=== PATIENT | female | born 1965 | race Two or more races ===

== ENCOUNTER 2022-01-14 15:29 | Emergency (ER) | payer MEDICAID ==
[~2022-01-14] VITALS: Ht 152.4 cm; Wt 49.9 kg
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
--- NOTE | 2022-01-14 15:35 | NUR ---
IV CANNULA G18 INSERTED ON RIGHT AC. BLOOD DRAWN AND SENT TO LAB. PATIENT IS COMPLAINING OF DIZZINESS AND PAIN AT THE OCCIPITAL AREA OF HEAD. +N/V. DR ESPOSITO MADE AWARE.
[2022-01-14] MEDS ORDERED: ONDANSETRON HCL/PF 4 MG/2 ML VIAL ONE (16:02)
--- NOTE | 2022-01-14 16:02 | NUR ---
WHEELED PATIENT TO RAD DEPT FOR CT SCAN.
[2022-01-14] MEDS: ONDANSETRON HCL/PF 4 MG/2 ML VIAL IVP ONE (16:12)
--- NOTE | 2022-01-14 16:13 | NUR ---
SPOKE TO DAUGHTER LOU ABOUT PATIENT. HER NUMBER . SHE WILL BE THE PATIENT RANCH HAND SUPERVISOR.
[2022-01-14] MEDS ORDERED: ACETAMINOPHEN ES 500 MG TABLET ONE (16:36)
[2022-01-14] MEDS: ACETAMINOPHEN ES 500 MG TABLET PO ONE (16:38)
[2022-01-14] MEDS ORDERED: TRAM-351 PO (18:52)
--- NOTE | 2022-01-14 19:30 | NUR ---
PATIENT FOR DISCHARGE. CALLED DAUGHTER LOU AND EXPLAINED THE DISCHARGE INSTRUCTION. HAD AN ROUTE SALES DELIVERY DRIVER WITH ME TO EXPLAIN THE DISCHARGE INSTRUCTION TO PATIENT AND HER SISTER CONCHITA. IV CANNULA REMOVED.
[2022-01-14 19:39] VITALS: BP 149/91
--- NOTE | 2022-01-14 19:39 | NUR ---
Patient discharged to home in stable condition. Written and verbal after care instructions given. Patient verbalizes understanding of instruction.
== END 2022-01-14 19:40 | disposition home or self-care (01) ==
LOC: ER 15:34
DX: R51.9 Headache, unspecified (principal); R11.0 Nausea; R07.89 Other chest pain; I10 Essential (primary) hypertension; E11.9 Type 2 diabetes mellitus without complications; Z79.899 Other long term (current) drug therapy
CPT/HCPCS: 70450; 71045; 72125; 96374; 99284; J2405